=== PATIENT | female | born 1980 | race African-American/Black ===

== ENCOUNTER 2017-02-22 16:28 | Emergency (ER) | payer MEDICAID ==
[~2017-02-22] VITALS: Ht 162.6 cm; Wt 51.5 kg
[2017-02-22 16:38] VITALS: BP 111/80
== END 2017-02-22 17:20 | disposition home or self-care (01) ==
LOC: ER 16:34
DX: S43.101A Unspecified dislocation of right acromioclavicular joint, initial encounter (principal); W19.XXXA Unspecified fall, initial encounter; Y93.89 Activity, other specified; Y99.8 Other external cause status; Y92.89 Other specified places as the place of occurrence of the external cause
CPT/HCPCS: 73030